=== PATIENT | male | born 1945 | race Two or more races ===

== ENCOUNTER 2021-02-07 04:40 | Day surgery (SDC) | payer OTHER, BC ==
[2021-02-05 16:37] VITALS: BMI 34.7
[2021-02-07 10:19] VITALS: PULSE 61
[2021-02-07 13:12] VITALS: BP 124/66; TEMP 97.4
== END 2021-02-07 10:22 | disposition home or self-care (01) ==
LOC: JASU-ENDO 04:40
PROVIDERS: ATTEND Internal Medicine Gastroenterology
PROC: 0DBL8ZX Excision of Transverse Colon, Via Natural or Artificial Opening Endoscopic, Diagnostic (ICD-10-PCS; principal; 2021-02-07 09:00)
DX: Z12.11 Encounter for screening for malignant neoplasm of colon (principal); Z86.010 Personal history of colon polyps; D12.3 Benign neoplasm of transverse colon; K57.30 Diverticulosis of large intestine without perforation or abscess without bleeding; K64.8 Other hemorrhoids

== ENCOUNTER 2022-04-28 11:30 | Emergency (ER) | payer OTHER, BC ==
[2022-04-28] MEDS ORDERED: METHOCARBAMOL 750 MG TABLET PO ONE (11:42)
[2022-04-28] MEDS ORDERED: LIDOCAINE 5% TOPICAL PATCH TP ONE (11:42)
[2022-04-28] MEDS ORDERED: ACETAMINOPHEN 325 MG TABLET (FP) PO ONE (11:42)
[2022-04-28 12:08] VITALS: BP 148/86; PULSE 66; RESP 20; TEMP 98.6; BMI 34.0
[2022-04-28] MEDS ORDERED: ACETAMINOPHEN 325 MG TABLET (FP) ONE (12:13)
[2022-04-28] MEDS ORDERED: METHOCARBAMOL 500 MG TABLET ONE (12:14)
[2022-04-28] MEDS ORDERED: LIDOCAINE 5% TOPICAL PATCH ONE (12:14)
[2022-04-28] MEDS ORDERED: LIDOCAINE PATCH REMOVAL MC SCH (22:00)
== END 2022-04-28 12:42 | disposition home or self-care (01) ==
LOC: FER 11:30
DX: M25.512 Pain in left shoulder (principal)
CPT/HCPCS: 73030-TC-LT-FY; 73110-TC-LT-FY; 99284-25

== ENCOUNTER 2024-03-08 04:13 | Day surgery (SDC) | payer OTHER, BC ==
[2024-03-03 11:08] VITALS: BMI 34.2
[2024-03-08] MEDS ORDERED: LIDOCAINE VISCOUS 2% ORAL/TOP 15 ML UNIT-DOSE CUP ONE (09:15)
[2024-03-08 09:48] VITALS: TEMP 97.5
[2024-03-08 10:16] VITALS: RESP 99
[2024-03-08 10:27] VITALS: BP 130/59; PULSE 55
== END 2024-03-08 10:37 | disposition home or self-care (01) ==
LOC: JASU-ENDO 04:13
PROVIDERS: ATTEND Internal Medicine Gastroenterology
PROC: 0DB98ZX Excision of Duodenum, Via Natural or Artificial Opening Endoscopic, Diagnostic (ICD-10-PCS; 2024-03-08)
PROC: 0DB78ZX Excision of Stomach, Pylorus, Via Natural or Artificial Opening Endoscopic, Diagnostic (ICD-10-PCS; 2024-03-08)
PROC: 0DB68ZX Excision of Stomach, Via Natural or Artificial Opening Endoscopic, Diagnostic (ICD-10-PCS; 2024-03-08)
PROC: 0DB28ZX Excision of Middle Esophagus, Via Natural or Artificial Opening Endoscopic, Diagnostic (ICD-10-PCS; 2024-03-08)
PROC: 0DB38ZX Excision of Lower Esophagus, Via Natural or Artificial Opening Endoscopic, Diagnostic (ICD-10-PCS; 2024-03-08)
PROC: 0DJD8ZZ Inspection of Lower Intestinal Tract, Via Natural or Artificial Opening Endoscopic (ICD-10-PCS; principal; 2024-03-08 09:00)
DX: Z12.11 Encounter for screening for malignant neoplasm of colon (principal); K29.00 Acute gastritis without bleeding; K44.9 Diaphragmatic hernia without obstruction or gangrene; K21.9 Gastro-esophageal reflux disease without esophagitis; Z86.010 Personal history of colon polyps
CPT/HCPCS: 43239; G0105; 88305-TC; 88342-TC